=== PATIENT | female | born 1960 | race Caucasian/White ===

== ENCOUNTER 2018-11-06 05:23 | Inpatient (IN) | payer BC ==
[2018-11-06] MEDS ORDERED: Celecoxib 200 MG Cap PO ONE (05:39)
[2018-11-06] MEDS ORDERED: Acetaminophen 500 MG Tab PO ONE (05:39)
[2018-11-06] MEDS ORDERED: Gabapentin 300 MG Cap PO ONE (05:39)
[2018-11-06] MEDS ORDERED: Scopolamine 1.5 MG Transdermal Patch TOP ONE (05:42)
[2018-11-06] MEDS ORDERED: Dextrose 5%-Lactated Ringers 1,000 ML IV SCH ×2 (05:45→11:00)
[2018-11-06] MEDS ORDERED: cefOXitin 2 GM Vial ONE (06:54)
[2018-11-06] MEDS ORDERED: cefOXitin 2 GM in Sodium Chloride 0.9% 100 ML IV ONE (07:00)
[2018-11-06] MEDS ORDERED: Succinylcholine 200 MG/10 ML MDV ONE (07:02)
[2018-11-06] MEDS ORDERED: Dexamethasone 4 MG/ML SDV ONE (07:02)
[2018-11-06] MEDS ORDERED: Propofol 200 MG/20 ML SDV ONE (07:02)
[2018-11-06] MEDS ORDERED: Neostigmine Methylsulfate 1 MG/ML 5 ML Syringe ONE (07:02)
[2018-11-06] MEDS ORDERED: Rocuronium 50 MG/5 ML Vial ONE ×2 (07:02→08:12)
[2018-11-06] MEDS ORDERED: Ondansetron 4 MG/2 ML SDV ONE (07:02)
[2018-11-06] MEDS ORDERED: Glycopyrrolate 0.2 MG/ML 5 ML MDV ONE (07:02)
[2018-11-06] MEDS ORDERED: cefOXitin 2 GM in Sodium Chloride 0.9% 50 ML IV ONE ×2 (07:15→07:30)
[2018-11-06] MEDS ORDERED: Ketamine 500 MG/5 ML MDV IV SCH (07:30)
[2018-11-06] MEDS ORDERED: Ketamine 50 MG in Sodium Chloride 0.9% 49.5 ML IV SCH (07:30)
[2018-11-06] MEDS ORDERED: Lidocaine 2% 100 MG/5 ML Syringe IVPUSH SCH (07:30)
[2018-11-06] MEDS ORDERED: Labetalol 20 MG/4 ML Syringe ONE (07:48)
[2018-11-06] MEDS ORDERED: Sugammadex Sodium 200 MG/2 ML VIAL ONE (09:14)
[2018-11-06] MEDS ORDERED: hydrALAZINE 20 MG/ML SDV IVPUSH ONE ×2 (09:50→10:01)
[2018-11-06] MEDS ORDERED: Insulin Lispro 100 Unit/ML 3 ML KwikPen SUBCUT ONE (10:15)
[2018-11-06] MEDS ORDERED: hydrOXYzine HCl 100 MG/2 ML SDV IM PRN (11:22)
[2018-11-06] MEDS ORDERED: diphenhydrAMINE 50 MG/ML SDV IVPUSH PRN (11:22)
[2018-11-06] MEDS ORDERED: HYDROmorphone 1 MG/ML Syringe IV PRN (11:22)
[2018-11-06] MEDS ORDERED: Metoclopramide 10 MG/2 ML SDV IVPUSH PRN (11:22)
[2018-11-06] MEDS ORDERED: Ondansetron 4 MG/2 ML SDV IVPUSH PRN (11:22)
[2018-11-06] MEDS ORDERED: HYDROmorphone 0.5 MG/0.5 ML Syringe IVPUSH PRN (11:22)
[2018-11-06] MEDS ORDERED: Labetalol 20 MG/4 ML Syringe IVPUSH PRN (11:22)
[2018-11-06] MEDS: Lidocaine 0.4%/D5W 2 GM/500 ML BAG IV SCH (11:48)
[2018-11-06] MEDS: cefOXitin 2 GM in Sodium Chloride 0.9% 50 ML IV SCH ×2 (12:02→17:52)
[2018-11-06] MEDS: Propranolol 40 MG Tab PO SCH ×2 (14:03→20:30)
[2018-11-06] MEDS: Gabapentin 250 MG/5 ML Solution ML 470 ML Bottle PO SCH ×2 (14:03→20:26)
[2018-11-06] MEDS: Acetaminophen 325 MG Tab PO SCH ×2 (14:03→20:27)
[2018-11-06] MEDS ORDERED: Pantoprazole 40 MG Vial IVPUSH SCH (16:00)
[2018-11-06] MEDS ORDERED: MVI, Adult with Vitamin K 10 ML, Thiamine 200 MG, Chromium/Copper/Mang/Selen/Zn 1 ML in... IV SCH ×4 (16:00)
[2018-11-06] MEDS: Heparin Sodium 5,000 Units/ML Vial SUBCUT SCH (17:12)
[2018-11-06] MEDS: Insulin Lispro 100 Unit/ML 3 ML KwikPen SUBCUT PRN ×2 (17:13→22:10)
[2018-11-06] MEDS: Lactated Ringers 1,000 ML IV SCH (22:16)
[2018-11-07] MEDS: cefOXitin 2 GM in Sodium Chloride 0.9% 50 ML IV SCH ×2 (00:36→05:44)
[2018-11-07] MEDS ORDERED: Iopamidol 612 MG/ML 100 ML Bottle IV SCH (02:45)
[2018-11-07] MEDS: Acetaminophen 325 MG Tab PO SCH ×4 (03:09→21:17)
[2018-11-07] MEDS: Heparin Sodium 5,000 Units/ML Vial SUBCUT SCH ×2 (03:09→15:23)
--- NOTE | 2018-11-07 04:09 | CRLCR ---
Indication: Eval rate Jose-en-Y Technique: KUB 2 view Comparison: None Findings/Impression: : There is oral contrast within the stomach and small bowel. No obstruction or extravasation. A KAEL drain projects in the left upper quadrant. Nonspecific bowel gas pattern. Dictated by Mignon Bearden MD @ Nov 07 2018 4:07AM Signed by Dr. Mignon Bearden @ Nov 07 2018 4:07AM
[2018-11-07] MEDS: Insulin Lispro 100 Unit/ML 3 ML KwikPen SUBCUT PRN (04:59)
[2018-11-07] MEDS: Lactated Ringers 1,000 ML IV SCH ×2 (06:15→23:17)
[2018-11-07] MEDS: Propranolol 40 MG Tab PO SCH ×2 (08:32→21:18)
[2018-11-07] MEDS: DULoxetine 30 MG Cap PO SCH ×2 (08:32→21:18)
[2018-11-07] MEDS: Celecoxib 200 MG Cap PO SCH (08:32)
[2018-11-07] MEDS: Gabapentin 250 MG/5 ML Solution ML 470 ML Bottle PO SCH ×3 (08:33→21:21)
[2018-11-07] MEDS: Lidocaine 0.4%/D5W 2 GM/500 ML BAG IV SCH (10:12)
[2018-11-07] MEDS: SCOPOLAMINE PATCH CHECK TOP SCH (10:12)
--- NOTE | 2018-11-07 13:07 | PN ---
DATE OF SERVICE: 11/07/2018 The patient is postop day #1 from laparoscopic Jose-en-Y gastric bypass. Overall, she is doing well. Her blood sugar is a little bit high, and I think this will come down today with coverage and switching over to plain LR step-2 diet today. I am going to restart her pertinent oral medications, and she may be ready for discharge home tomorrow. Rogelio Crisostomo MD /[id number]
[2018-11-07] MEDS: ANASTROZOLE 1 MG PO SCH (15:20)
[2018-11-07] MEDS ORDERED: MVI, Adult with Vitamin K 10 ML, Thiamine 200 MG, Chromium/Copper/Mang/Selen/Zn 1 ML in... IV SCH ×4 (16:00)
[2018-11-07] MEDS ORDERED: Pantoprazole 40 MG Delayed-Release Granules 1 Packet PO SCH (16:30)
[2018-11-07] MEDS ORDERED: Simvastatin 20 MG Tab PO SCH (21:00)
[2018-11-07] MEDS ORDERED: QUEtiapine 100 MG Tab PO SCH (21:00)
[2018-11-08] MEDS: Acetaminophen 325 MG Tab PO SCH ×3 (03:19→11:22)
[2018-11-08] MEDS: Heparin Sodium 5,000 Units/ML Vial SUBCUT SCH (03:19)
[2018-11-08] MEDS: Celecoxib 200 MG Cap PO SCH (07:33)
[2018-11-08] MEDS ORDERED: Cyanocobalamin (Vitamin B12) 1,000 MCG/ML SDV IM ONE (09:00)
[2018-11-08] MEDS: Propranolol 40 MG Tab PO SCH (09:47)
[2018-11-08] MEDS: DULoxetine 30 MG Cap PO SCH (09:47)
[2018-11-08] MEDS: SCOPOLAMINE PATCH CHECK TOP SCH (09:48)
[2018-11-08] MEDS: ANASTROZOLE 1 MG PO SCH (09:49)
[2018-11-08] MEDS: Gabapentin 250 MG/5 ML Solution ML 470 ML Bottle PO SCH ×2 (09:55→09:57)
--- NOTE | 2018-11-08 13:52 | OR ---
DATE OF PROCEDURE: 11/06/2018 SURGEON: Rogelio Crisostomo MD PREOPERATIVE DIAGNOSIS: Morbid obesity. POSTOPERATIVE DIAGNOSES: 1. Morbid obesity. 2. Marked hepatomegaly. 3. Paraesophageal diaphragmatic hernia. 4. Mediastinal lipoma. 5. Nodular lesion on surface of the stomach. OPERATIVE PROCEDURES: 1. Laparoscopic Jose-en-Y gastric bypass with long-limb gastroenterostomy (21942). 2. Tereso-Cut needle liver biopsy (33069). 3. Repair of paraesophageal diaphragmatic hernia (34901). 4. Excision of mediastinal lipoma (14899). 5. Excision of nodular lesion on surface of stomach (75409). ANESTHESIA: General. BROADBAND TECHNICIAN: Barbara Isaacs PA-C. INDICATIONS FOR PROCEDURE: This is a 58-year-old presenting with longstanding morbid obesity and increasingly significant comorbidities. After preoperative evaluation and discussion, she wished to proceed with a gastric bypass procedure. Potential risks including bleeding, infection, leaks from various GI tract closures, problems with bowel obstruction over time, as well as the possibility of cardiopulmonary, septic, or hemorrhagic complications leading to were all discussed, and the patient wishes to proceed. DETAILS OF PROCEDURE: The patient was taken to the operating room and after general endotracheal anesthesia was induced, she was placed in a lithotomy position, and the abdomen was prepped and draped. At 15 cm inferior and 5 cm left of the xiphoid process, a transverse incision was made. The peritoneal cavity was entered under direct vision with an Optiview trocar and inflated to 15 mmHg pressure with CO2. Laparoscope was reinserted and no underlying trocar insertion site injuries were seen. Following this, bilateral transversus abdominis plane blocks were placed, and 5 additional trocars were placed across the upper and midabdomen. The liver was noted to be markedly fatty infiltrated, and Tereso-Cut needle biopsy was obtained from the left lobe of the liver. The omentum was then divided in the midline up to the level of the transverse colon. This allowed identification of small bowel at the ligament of Treitz. Small bowel was then traced out 200 cm distal to that point, where it was divided transversely with the HUGO stapler. The small bowel was then traced out an additional 150 cm, where the [id number] enteroenterostomy was accomplished with internal firing of the Endo-HUGO 60 mm stapler. Common opening was then closed transversely with the same stapler and the angles of anastomosis and mesenteric defect approximated with some 0 Ethibond stitch, along with fibrin sealant. The divided end of the Jose limb was then from the mesentery for a few centimeters, which allowed an antecolic position of the Jose limb up to the level of the gastroesophageal junction without tension. The liver was then retracted anteriorly. The patient was noted to have some clear frond- like nodularity on the surface of the stomach. This was excised and sent for histologic evaluation. The entire amount of this removed was in the range of 2 mm. This was obtained by simply grasping this with the non-traumatic clamps and pulling this off the surface of the stomach. Upon evaluation of the esophagogastric junction, the patient was noted to have a moderate- sized paraesophageal diaphragmatic hernia with prolapse of some perigastric fat and fundus in the plane anterior and slightly to the left of the course of the esophagus. This was reduced and the peritoneum overlying this incised and reflected downward. During the course of dissection, mediastinal lipoma was encountered, and this was excised and sent for histologic evaluation, with the lipoma excision likely to facilitate a more adequate repair of the diaphragmatic hernia, which was then accomplished with some 0 Ethibond sutures reinforced with PTFE pledgets. At this point, the gastrointestinal balloon catheter was inflated to 15 mL and pulled up snuggly against the EG junction. Gastric wall over the apex of balloon was then marked with electrocautery and balloon catheter deflated and pulled up in esophagus. The lesser omental tissue adjacent to the gastric cardia was incised, allowing dissection behind the stomach at that level. Pouch formation was initiated with a transversely-oriented HUGO stapler firing at the level of the cauterized william at the gastric cardia and then completed with additional firings of HUGO carlos up to and through the angle of His. Upon completion of the pouch, both staple lines were noted to be intact. The anvil of a 25-mm EEA stapler was then attached to [place] sump type tube. The latter was brought down through the mouth and taken out a small opening in the gastric pouch, allowing the anvil likewise to be placed into the gastric pouch. The divided-end of the Jose limb was then opened and the main body of EEA stapler passed several centimeters into the lumen of small bowel, brought up the anvil and united with it, thus creating the gastrojejunostomy. Upon removal of the stapler, double donuts of mucosa were noted within it, and the small bowel was closed off with a vascular staple line. Gastrojejunostomy was reinforced with some 3-0 Vicryl seromuscular stitch, along with fibrin sealant. Leak test was accomplished with injection of 120 mL of air in the gastric pouch while submerged within cefoxitin-containing saline solution. No leaks were identified. A single Sahil-Beck drain was placed through the left lateral trocar site and positioned adjacent to the gastrojejunostomy, from there up to the area of the splenic fossa. The trocars were then sequentially removed. The peritoneal cavity was deflated. Incisions were closed with 4-0 Vicryl skin stitch and drains affixed with some 4-0 Vicryl stitch as well. The patient was taken to the recovery room in a satisfactory condition. Physician assistant buyer, Barbara Isaacs, played an essential role in assisting in this case, helping to position the patient, retract structures as needed, as well as suturing and cutting sutures when indicated. Her presence improved patient safety and decreased the operative time. Rogelio Crisostomo MD /[id number]
--- NOTE | 2018-11-09 02:19 | DISCH ---
ADMISSION DIAGNOSES: 1. Morbid obesity, BMI 44. 2. Diabetes type 2, hemoglobin A1c seven. 3. Depression. 4. Sleep apnea with use of CPAP. 5. Gastroesophageal reflux disease. 6. Migraine headaches. 7. Hyperlipidemia. 8. Midline low back pain with right-sided sciatica. 9. Anxiety. 10.Malignant neoplasm of lower inner quadrant of right breast, estrogen receptor positive. 11.History of alcohol abuse. 12.Sensorineural hearing loss bilaterally. 13.Hypertension. DISCHARGE DIAGNOSES: 1. Laparoscopic Jose-en-Y gastric bypass surgery, liver biopsy. 2. Repair of diaphragmatic hernia. 3. Excision of mediastinal lipoma and excision of nodule on surface of stomach. 4. Morbid obesity. 5. Hepatomegaly. 6. Diaphragmatic hernia. 7. Mediastinal lipoma and nodule on surface of stomach. Date of surgery 11/06/2018. Surgeon, Rogelio Crisostomo MD. HISTORY: Supriya Hoffman is a 58-year-old female with longstanding history of morbid obesity and increasing comorbidities. On admission, her hemoglobin A1c was seven indicating diabetes type 2. After preoperative evaluation and discussion of possible risks and possible complications, she wished to proceed with surgical procedure. HOSPITAL COURSE: Supriya had her surgery on 11/06/2018. She had no operative complications. On postoperative day #1, she was started on a step 2 gastric bypass diet with no cereal. Vital signs were stable. Activity was good. She received dietary instruction. On postoperative day #2, she was able to be discharged to home. PHYSICAL EXAMINATION: GENERAL: Supriya Hoffman is a pleasant, 58-year-old female. VITAL SIGNS: Height is 5 feet 2 inches, weight is 243 pounds. TPR is 96.5, 59, 16, blood pressure is 152/70. HEENT: Negative. NECK: Supple. HEART: Regular rate and rhythm. LUNGS: Clear. ABDOMEN: Sutured trocar sites intact. Abdominal binder is on. EXTREMITIES: Without peripheral edema. DISPOSITION: Discharged to home. CONDITION: Stable and improving. FOLLOWUP APPOINTMENT: Barbara Isaacs PA-C, on 11/15/2018 at 10 a.m. MEDICATIONS: New prescriptions: 1. Tylenol 650 mg oral q.6 hours p.r.n. pain. 2. Celebrex 200 mg oral daily #14. 3. Zofran ODT 4 mg q.6 hours p.r.n. nausea #30. She is to continue: 1. Cymbalta 30 mg oral b.i.d. 2. Arimidex 1 mg oral daily. 3. Lasix 20 mg oral daily. 4. Nystatin 15 g topical four times a day. 5. Omeprazole 20 mg oral daily. 6. Inderal 40 mg oral twice a day. 7. Seroquel 100 mg oral at bedtime. 8. Zocor 80 mg oral at bedtime. 9. Vistaril 25 mg oral every 8 hours p.r.n. anxiety. Discontinue takin. Vitamin D3. 2. Ferrous fumarate. 3. Vitron-C. 4. Magnesium. 5. Multivitamin daily until first postoperative appointment. DIET: Step 2 gastric bypass diet for 2 weeks until Tuesday11/21/2018. Drink 8 to 10 glasses of water a day. ACTIVITY: No lifting greater than 10 pounds for 2 weeks. Other activity: Walk at least 6 times daily inside your home. Driving: Do not drive for one week. Shower/bathing: May shower. DISCHARGE INSTRUCTIONS: Notify provider if any fever, increased pain, swelling, redness, nausea, or vomiting. Keep site clean and dry. Wear abdominal binder for 2 weeks and then as tolerated. Special instruction: Use incentive spirometer 10 times every hour while awake for 1 week.
== END 2018-11-08 11:30 | disposition home or self-care (01) | DRG 403 ==
LOC: JP.SDS 05:23 → JP.SDSSCHI 06:00 → JP.MS 09:00 → EDSTATUS 09:30 → UNDOADMIN 09:30 → JP.SDSSCHI 09:30
PROVIDERS: ADMIT Surgery; ATTEND Surgery
PROC: 0D164ZA Bypass Stomach to Jejunum, Percutaneous Endoscopic Approach (ICD-10-PCS; principal; 2018-11-06)
PROC: 0FB24ZX Excision of Left Lobe Liver, Percutaneous Endoscopic Approach, Diagnostic (ICD-10-PCS; 2018-11-06)
PROC: 0DB64ZX Excision of Stomach, Percutaneous Endoscopic Approach, Diagnostic (ICD-10-PCS; 2018-11-06)
PROC: 0BQT4ZZ Repair Diaphragm, Percutaneous Endoscopic Approach (ICD-10-PCS; 2018-11-06)
PROC: 0WBC4ZX Excision of Mediastinum, Percutaneous Endoscopic Approach, Diagnostic (ICD-10-PCS; 2018-11-06)
DX: E66.01 Morbid (severe) obesity due to excess calories (principal); Z68.41 Body mass index [BMI] 40.0-44.9, adult; R16.0 Hepatomegaly, not elsewhere classified; K44.9 Diaphragmatic hernia without obstruction or gangrene; D17.4 Benign lipomatous neoplasm of intrathoracic organs; K31.9 Disease of stomach and duodenum, unspecified; K76.0 Fatty (change of) liver, not elsewhere classified; I10 Essential (primary) hypertension; Z85.3 Personal history of malignant neoplasm of breast; G47.33 Obstructive sleep apnea (adult) (pediatric); Z99.89 Dependence on other enabling machines and devices; E78.5 Hyperlipidemia, unspecified; F32.9 Major depressive disorder, single episode, unspecified; G43.909 Migraine, unspecified, not intractable, without status migrainosus; F10.11 Alcohol abuse, in remission; F41.9 Anxiety disorder, unspecified; E11.9 Type 2 diabetes mellitus without complications; H90.5 Unspecified sensorineural hearing loss; K21.9 Gastro-esophageal reflux disease without esophagitis; M54.9 Dorsalgia, unspecified; Z87.891 Personal history of nicotine dependence
CPT/HCPCS: 36415; 74240; 82962; 83036; 86850; 86900; 86901; A9270-GY; C9113; C9399; J0171; J0330; J0360; J0694; J1100; J1170; J1644; J1815; J1815-GY; J2001; J2405; J2704; J2710; J2795; J3010; J3410; J3411; J3420; J3490; J7030; J7042; J7050; J7120; Q9967

== ENCOUNTER 2020-07-07 05:48 | Day surgery (SDC) | payer BC, OTHER ==
[2020-07-07] MEDS ORDERED: Lactated Ringers 1,000 ML IV SCH (06:30)
[2020-07-07] MEDS ORDERED: Povidone-Iodine 10% Soln 118.25 ML Bottle ONE (06:46)
[2020-07-07] MEDS ORDERED: Nozin Nasal Sanitizer NASBOTH SCH (07:00)
[2020-07-07] MEDS ORDERED: ceFAZolin 2 GM in Premix Bag 1 BAG IV ONE (07:30)
[2020-07-07] MEDS ORDERED: ceFAZolin 1 GM in Premix Bag 1 BAG IV ONE (07:30)
[2020-07-07] MEDS ORDERED: Tranexamic Acid 680 MG in Sodium Chloride 0.9% 50 ML IV ONE (07:30)
[2020-07-07] MEDS ORDERED: Acetaminophen/HYDROcodone 325-5 MG Tab PO PRN (08:59)
[2020-07-07] MEDS ORDERED: Morphine 2 MG/ML SYRINGE IV PRN (08:59)
[2020-07-07] MEDS ORDERED: Acetaminophen 325 MG Tab PO PRN (08:59)
[2020-07-07] MEDS ORDERED: Ondansetron 4 MG/2 ML SDV IVPUSH PRN (08:59)
[2020-07-07] MEDS ORDERED: Magnesium Hydroxide 400 MG/5 ML Susp 30 ML Cup PO PRN (08:59)
[2020-07-07] MEDS ORDERED: Sodium Chloride 0.9% 1,000 ML IV SCH (09:00)
[2020-07-07] MEDS ORDERED: Non-Formulary Medication 1 Each (Hydroxyzine Pamoate [Vistaril] 25 MG) PO PRN (09:07)
--- NOTE | 2020-07-07 10:00 | CR ---
Pelvis 1V or 2V CLINICAL HISTORY: Arthroplasty FINDINGS: Patient has undergone recent left hip total arthroplasty. Components appear well seated. There is a small amount of intra-articular air IMPRESSION: Status post left total left hip arthroplasty
[2020-07-07] MEDS ORDERED: hydrOXYzine HCl 25 MG Tab PO PRN (10:20)
[2020-07-07] MEDS ORDERED: Tranexamic Acid 680 MG in Sodium Chloride 0.9% 50 ML IV PRN (10:30)
[2020-07-07] MEDS ORDERED: fentaNYL 100 MCG/2 ML SDV ONE (11:17)
[2020-07-07] MEDS ORDERED: Propofol 200 MG/20 ML SDV ONE ×2 (11:17→11:18)
[2020-07-07] MEDS ORDERED: Midazolam 1 MG/ML 2 ML SDV ONE (11:17)
[2020-07-07] MEDS: Ketorolac 30 MG/ML SDV IVPUSH SCH ×2 (11:45→18:00)
[2020-07-07] MEDS: Docusate Sodium 100 MG Cap PO SCH (11:47)
[2020-07-07] MEDS: Acetaminophen/oxyCODONE 325-5 MG Tab PO PRN ×3 (13:51→21:06)
[2020-07-07] MEDS: ceFAZolin 1 GM in Premix Bag 1 BAG IV SCH ×2 (14:38→22:43)
[2020-07-07] MEDS: Polyethylene Glycol 3350 Powder 17 GM Packet PO SCH (14:38)
[2020-07-07] MEDS ORDERED: Morphine 2 MG/ML SYRINGE IVPUSH ONE (17:14)
[2020-07-07] MEDS ORDERED: QUEtiapine 100 MG Tab PO SCH (21:00)
[2020-07-07] MEDS: Nozin Nasal Sanitizer NASBOTH SCH (21:04)
[2020-07-08] MEDS: Acetaminophen/oxyCODONE 325-5 MG Tab PO PRN ×4 (01:36→13:52)
[2020-07-08] MEDS: Ketorolac 30 MG/ML SDV IVPUSH SCH ×2 (03:29→11:04)
[2020-07-08] MEDS: ceFAZolin 1 GM in Premix Bag 1 BAG IV SCH (06:35)
[2020-07-08] MEDS ORDERED: Pantoprazole 40 MG Tab.CR PO SCH (07:30)
[2020-07-08] MEDS: Nozin Nasal Sanitizer NASBOTH SCH (08:49)
[2020-07-08] MEDS: Docusate Sodium 100 MG Cap PO SCH (08:49)
[2020-07-08] MEDS: Polyethylene Glycol 3350 Powder 17 GM Packet PO SCH (08:49)
[2020-07-08] MEDS ORDERED: Non-Formulary Medication 1 Each (Omeprazole [Omeprazole] 20 MG) PO SCH (09:00)
[2020-07-08] MEDS ORDERED: Furosemide 20 MG Tab PO SCH (09:00)
[2020-07-08] MEDS ORDERED: Magnesium Oxide 400 MG Tab PO SCH (09:00)
[2020-07-08] MEDS ORDERED: MAGNESIUM OXIDE 800 MG PO SCH (09:00)
[2020-07-08] MEDS ORDERED: Polyethylene Glycol 3350 Powder 17 GM Packet PO SCH (09:00)
--- NOTE | 2020-07-08 15:11 | PCM.DCSUM1 ---
Discharge Summary - Hospital Course Brief History: Mojgan 60 y/o female with severe left hip osteoarthritis; she failed conservative management and elected surgical management with a left total hip arthroplasty. Underwent left total hip arthroplasty on 07/07/20. Surgery went well with no complications. Diagnosis: Stroke: No Modified Nalini Scale: No Symptoms at All Modified Nalini Scale Score: 0 - Discharge Data Discharge Date: 07/08/20 Discharge Disposition: Home, Self-Care 01 Condition: Good - Referral to Home Health Date of Face to Face Encounter: 07/08/20 Reason for Homebound Status: Able to safely ambulate with FWW and perform ADLs. Good support system at home. Primary Care Physician: DEMETRIUS Goyal - Patient Summary/Data Operative Procedure(s) Performed: left total hip arthroplasty Consults: Consultations 07/07/20 08:59 Consult to Case Management/Hockey Scout [CONS] Routine Comment: Physician Instructions: Discharge placement post hip surgery Service(s) to be Consulted: Case Management PT Evaluation and Treatment [CONS] Routine Please Evaluate and Treat. PT Reason for Consult: Ambulation Discharge Disposition: Home w Home Health Special Instructions: posterior hip precautions, WBAT This query below is only for informational purposes and is not editable. PT Evaluation and Treatment [CONS] Routine Please Evaluate and Treat. PT Reason for Consult: Post op Ortho Surgery Hip Pending Discharge: Yes, 2- -3 days Special Instructions: Schedule first outpatient P.T. appointment 3 - 5 days post discharge This query below is only for informational purposes and is not editable. 07/07/20 09:04 OT Evaluation and Treatment [CONS] Routine Please Evaluate and Treat. OT Reason for Consult: ADL's Special Instructions: Status post Hip Surgery This query below is only for informational purposes and is not editable. Hospital Course: Patient is a mojgan 60 y/o female, s/p L total hip arthroplasty, POD#1. Surgery went well with no complications. Patient reports she was doing well until the block wore off yesterday; reports her pain was much higher than she was expecting yesterday evening. Patient utilized prn pain meds: 1 mg morphine yesterday evening and two 5-325 Percocets this morning. Has also been receiving scheduled 30 mg IV toradol q8 hrs. Reports her pain feels much better managed throughout today. Patient ambulated 20 feet with FWW yesterday evening after surgery. Worked with physical therapy twice today and showed improvement in each session; was able to ambulate 75 ft with FWW and perform exercises for strengthening of L lower extremity. Patient demonstrated ability to safely transfer in and out of bed to chair. Posterior hip precautions reviewed by physical therapy. Patient also participated in occupational therapy today, was doing well with ADLs using assistive equipment and minimal x1 assist. Has good support system at home with boyfriend, who use to be a [employer]ERING CONTRACTOR. Patient has been tolerating regular diet well with no nausea/emesis. Forte was discontinued and IV was saline locked this morning. Dressing change performed this afternoon by orthopedic provider. Exam: Left hip incision intact, no surrounding erythema, warmth to touch, drainage, nor ecchymosis of L hip. No pedal edema noted of L foot. Sensation intact on L lower extremity. Tibialis posterior pulse appreciated 2+. - Patient Instructions Diet: Usual Diet as Tolerated Activity: Apply Ice, Elevate Extremity, Full Weight Bearing Driving: Do Not Drive Showering/Bathing: Shower in AM Wound/Incision Care: Keep Operative Site/Wound Site Clean and Dry Notify Provider of: Fever, Increased Pain, Swelling and Redness, Drainage - Discharge Plan *PRESCRIPTION DRUG MONITORING PROGRAM REVIEWED*: Not Applicable *COPY OF PRESCRIPTION DRUG MONITORING REPORT IN PATIENT MOY: Not Applicable Home Medications: Home Meds Celecoxib [CeleBREX] 200 mg PO DAILY 11/03/18 [History] Furosemide [Lasix] 20 mg PO DAILY 11/03/18 [History] Omeprazole 20 mg PO DAILY 11/03/18 [History] hydrOXYzine pamoate [Vistaril] 25 mg PO Q8H PRN 11/03/18 [History] Calcium Citrate/Vitamin D3 [Calcium Citrate - Vit D Caplet] 2 each PO DAILY 06/16/20 [History] Cyanocobalamin (Vitamin B12) [Vitamin B12] 1,000 mg SL DAILY 06/16/20 [History] Ferrous Fumarate/Vitamin C [Vitron-C] 1 tab PO DAILY 06/16/20 [History] Magnesium Oxide [Magnesium] 800 mg PO DAILY 06/16/20 [History] Multivitamin [Multiple Vitamins] 2 tab PO DAILY 06/16/20 [History] QUEtiapine [SEROquel] 100 mg PO BEDTIME 06/16/20 [History] polyethylene glycoL 3350 [MiraLAX] 17 gm PO DAILY 06/16/20 [History] Acetaminophen [Tylenol] 650 mg PO Q6H PRN 06/17/20 [History] traMADol [Ultram] 50 mg PO Q6H PRN #28 tab 06/26/20 [Rx] Oxygen Therapy Mode: Room Air Patient Handouts: Incision Care, Adult, [id number] Referrals: Terrance Okeefe MD [Physician] - 07/22/20 10:30 am (Please arrive 15 minutes early to register for your appointment.) - Discharge Summary/Plan Comment DC Time >30 min.: No Discharge Summary/Plan Comment: * Discharge to home this afternoon; patient lives with boyfriend who used to be a P[employer]ING CONTRACTOR, he feels confident helping with ADLs * Patient to participate in outpatient physical therapy * Paper script given for 1 week supply of Percocet for pain management * Instructed patient to take 1 aspirin BID until 2 week follow up apt for DVT/VTE prophylaxis * Instructed patient to continue with Nozin nasal spray * Dressing change performed by orthopedic provider; instructions given to patient regarding wound care- is okay to shower, but do not go into jacuzzi or tub until seen at 2 week follow up apt. * Patient to follow up with orthopedics in 2 weeks. Encouraged to call if any concerns or questions arise prior to scheduled apt * Patient agreeable and expressed understanding of this plan via teach back - General Info Date of Service: 07/08/20 Admission Dx/Problem (Free Text: left hip osteoarthritis Functional Status: Reports: Pain Controlled, Tolerating Diet, Ambulating - Review of Systems General: Reports: No Symptoms HEENT: Reports: No Symptoms Pulmonary: Reports: No Symptoms Cardiovascular: Reports: No Symptoms Gastrointestinal: Reports: No Symptoms Genitourinary: Reports: No Symptoms Musculoskeletal: Reports: Leg Pain (L hip ), Joint Pain (L hip ) Skin: Reports: No Symptoms Neurological: Reports: No Symptoms Psychiatric: Reports: No Symptoms - Patient Data Vitals - Most Recent: Last Vital Signs Temp 99 F 07/08/20 14:24 Pulse 73 07/08/20 14:24 Resp 16 07/08/20 14:24 BP 99/64 07/08/20 14:24 Pulse Ox 97 07/08/20 14:24 Weight - Most Recent: 152 lb 3.2 oz I&O - Last 24 hours: Intake & Output 07/08/20 07/08/20 07/08/20 06:59 14:59 22:59 Intake Total 850 1130 Output Total 650 225 Balance 200 905 Lab Results - Last 24 hrs: Laboratory Results - last 24 hr 07/08/20 Range/Units 05:23 WBC 6.9 (4.5-11.0) K/uL RBC 3.57 (3.30-5.50) M/uL Hgb 10.9 L (12.0-15.0) g/dL Hct 34.5 L (36.0-48.0) % MCV 97 (80-98) fL MCH 31 (27-31) pg MCHC 32 (32-36) % Plt Count 238 (150-400) K/uL Med Orders - Current: Current Medications Acetaminophen (Tylenol) 650 mg PO Q4H PRN PRN Reason: Pain/Fever Hydrocodone Bitart/Acetaminophen (Longs 325-5 Mg) 2 tab PO Q4H PRN PRN Reason: Pain (mild 1-3) Bandage/Support Products ( Nasal Health Program Analyst) 1 applic NASBOTH BID [facility] Stop: 07/14/20 21:01 Last Admin: 07/08/20 08:49 Dose: 1 swab Documented by: Docusate Sodium (Colace) 100 mg PO DAILY [facility] Last Admin: 07/08/20 08:49 Dose: Not Given Documented by: Furosemide (Lasix) 20 mg PO DAILY [facility] Last Admin: 07/08/20 08:50 Dose: 20 mg Documented by: Hydroxyzine HCl (Atarax) 25 mg PO Q8H PRN PRN Reason: Anxiety Sodium Chloride (Normal Saline) 1,000 mls @ 125 mls/hr IV ASDIRECTED [facility] Last Admin: 07/07/20 11:50 Dose: 125 mls/hr Documented by: Ketorolac Tromethamine (Toradol) 30 mg IVPUSH Q8H [facility] Stop: 07/12/20 11:01 Last Admin: 07/08/20 11:04 Dose: 30 mg Documented by: Magnesium Hydroxide (Milk Of Magnesia) 30 ml PO Q6H PRN PRN Reason: Stool Softener Magnesium Oxide (Magnesium Oxide) 800 mg PO DAILY [facility] Last Admin: 07/08/20 08:49 Dose: 800 mg Documented by: Morphine Sulfate (Morphine) 1 mg IV Q1H PRN PRN Reason: Breakthrough Pain Last Admin: 07/07/20 16:06 Dose: 1 mg Documented by: Ondansetron HCl (Zofran) 4 mg IVPUSH Q6H PRN PRN Reason: Nausea/Vomiting Oxycodone/Acetaminophen (Percocet 325-5 Mg) 0 tab PO Q4H PRN PRN Reason: Pain (severe 7-10) Last Admin: 07/08/20 13:52 Dose: 2 tab Documented by: Pantoprazole Sodium (Protonix) 40 mg PO ACBREAKFAST [facility] Last Admin: 07/08/20 07:25 Dose: 40 mg Documented by: Polyethylene Glycol (Miralax) 17 gm PO DAILY [facility] Last Admin: 07/08/20 08:49 Dose: 17 gm Documented by: Quetiapine Fumarate (Seroquel) 100 mg PO BEDTIME [facility] Last Admin: 07/07/20 21:06 Dose: 100 mg Documented by: Discontinued Medications Bandage/Support Products ( Nasal Health Program Analyst) 1 applic NASBOTH BID [facility] Last Admin: 07/07/20 06:47 Dose: 1 applic Documented by: Fentanyl (Sublimaze) Confirm Administered Dose 100 mcg .ROUTE .STK-MED ONE Stop: 07/07/20 11:18 Lactated Ringer's (Ringers, Lactated) 1,000 mls @ 75 mls/hr IV ASDIRECTED [facility] Last Admin: 07/07/20 06:50 Dose: 75 mls/hr Documented by: Cefazolin Sodium/Dextrose 2 gm (/ Premix) 50 mls @ 100 mls/hr IV ONETIME ONE Stop: 07/07/20 07:59 Last Admin: 07/07/20 07:36 Dose: 100 mls/hr Documented by: Tranexamic Acid 680 mg/ Sodium (Chloride) 56.8 mls @ 227.2 mls/hr IV ONETIME ONE Stop: 07/07/20 07:44 Last Admin: 07/07/20 07:35 Dose: 227.2 mls/hr Documented by: Tranexamic Acid 680 mg/ Sodium (Chloride) 56.8 mls @ 227.2 mls/hr IV ONETIME PRN PRN Reason: 2ND DOSE IF NEEDED Stop: 07/07/20 10:31 Cefazolin Sodium/Dextrose 1 gm (/ Premix) 50 mls @ 100 mls/hr IV Q8H [facility] Stop: 07/08/20 07:29 Last Admin: 07/08/20 06:35 Dose: 100 mls/hr Documented by: Midazolam HCl (Versed 1 Mg/Ml) Confirm Administered Dose 2 mg .ROUTE .STK-MED ONE Stop: 07/07/20 11:18 Morphine Sulfate (Morphine) 2 mg IVPUSH ONETIME ONE Stop: 07/07/20 17:15 Last Admin: 07/07/20 17:18 Dose: 2 mg Documented by: Povidone Iodine (Betadine 10% Soln) Confirm Administered Dose 1 ml .ROUTE .STK- MED ONE Stop: 07/07/20 06:47 Last Admin: 07/07/20 08:16 Dose: 40 ml Documented by: Propofol (Diprivan 20 Ml) Confirm Administered Dose 200 mg .ROUTE .STK-MED ONE Stop: 07/07/20 11:18 Propofol (Diprivan 20 Ml) Confirm Administered Dose 200 mg .ROUTE .STK-MED ONE Stop: 07/07/20 11:19 - Exam General: Reports: Alert, Oriented, Cooperative, No Acute Distress Extremities: Pedal Edema (very mild, left ), Leg Pain (left ), Limited Range of Motion Skin: Reports: Dry, Intact Wound/Incisions: Reports: Healing Well, Dressing Dry and Intact, No Drainage Neurological: Reports: No New Focal Deficit Psy/Mental Status: Reports: Alert, Normal Affect, Normal Mood
--- NOTE | 2020-07-24 21:17 | OR ---
DATE OF PROCEDURE: 07/07/2020 SURGEON: Terrance Okeefe MD PREOPERATIVE DIAGNOSIS: Osteoarthritis, left hip. POSTOPERATIVE DIAGNOSIS: Severe osteoarthritis, left hip. PROCEDURE: Left total hip arthroplasty using Mynor M/L Taper stem size 9 standard, 50 mm Trabecular Metal cup, and a -3.5 length 32-mm ceramic head. FINISH SAW OPERATOR: Jesse Kay ANESTHESIA: Spinal with sedation. INDICATIONS: Supriya is a very pleasant, 60-year-old female with a history of progressive left hip pain. X-ray and examination are consistent with end-stage DJD. She is limited in her activities of daily living. She now presents for a left total hip arthroplasty. Risks, benefits, potential complications of the procedure were discussed. PROCEDURE IN DETAIL: After adequate anesthesia was obtained, patient was placed in a lateral decubitus position and secured with the hip positioner. The left hip and leg were prepped and draped in a sterile fashion. Leg lengths were assessed, and an incision was made over the greater trochanter and carried down through subcutaneous tissues. Hemostasis was obtained with electrocautery. Tensor fascia was divided in line of its fibers and a Charnley retractor was placed. Hip was internally rotated and the short external rotators along with hip capsule were divided. Capsule was divided in a T-fashion and the hip was then dislocated. Significant degenerative changes noted of the femoral head. Oscillating saw was used to make a femoral neck cut. Retractors were then placed about the acetabulum. Soft tissues removed from the central portion of the acetabulum as well as excision of the remaining labrum. The acetabulum was sequentially reamed to a size 50. A 50 cup was impacted into position and no additional fixation was needed. Polyethylene was tapped into position and secured. Attention was return to the femur. An awl was placed down the femoral canal and box osteotome was used to remove the lateral femoral neck cortex. Lateralizing reamer was utilized. The canal was then sequentially broached to a size 9. Trial reductions were made with 0 neck length and -3.5 neck length. The 3.5 neck length provided excellent stability and appeared to reproduce leg length. The trials were removed. Hip was irrigated, and the stem was tapped into position. Trial reductions were again done with 0 and a - 3.5 neck length. A -3.5 was selected again showing excellent stability with full extension as well as flexion, adduction, and internal rotation. Limb lengths were clinically level. Final femoral head was tapped onto the Vela taper, and hip was reduced once again. It was then irrigated with pulse lavage. This was followed by irrigation with a dilute Betadine solution which was left in place for 2-1/2 minutes and irrigated once again with pulse lavage. The capsule was closed with #2 Ethibond. Tensor fascia was closed in a running locking fashion with #2 Ethibond. Skin was closed with 2-0 Vicryl and a running 3-0 Monocryl. Steri-Strips were applied. Sterile dressing was then placed. The patient tolerated procedure well. There were no complications. Taken from the operating room in stable condition. Terrance Okeefe MD /[phone] MTDD
== END 2020-07-08 15:38 | disposition home or self-care (01) ==
LOC: JP.SDS 05:48 → JP.MS 08:59 → JP.SDS 07-08 15:38
PROVIDERS: ATTEND Specialist
DX: M16.12 Unilateral primary osteoarthritis, left hip (principal); I10 Essential (primary) hypertension; Z79.899 Other long term (current) drug therapy
CPT/HCPCS: 36415; 72170; 72170-26; 85027; 86850; 86900; 86901; 97110-GP; 97116-GP; 97161-GP; 97165-GO; 97530-GP; 97535-GO; A9270-GY; C1776; J0690; J1885; J2250; J2270; J2704; J3010; J7030; J7120

== ENCOUNTER 2020-08-18 08:26 | Inpatient (IN) | payer BC, OTHER ==
[~2020-08-18 08:26] MED LIST: Midazolam 1 MG/ML 2 ML SDV ONE; Povidone-Iodine 10% Soln 118.25 ML Bottle ONE; Propofol 200 MG/20 ML SDV ONE; fentaNYL 100 MCG/2 ML SDV ONE
[2020-08-18] MEDS ORDERED: Nozin Nasal Sanitizer NASBOTH SCH (09:00)
[2020-08-18] MEDS ORDERED: Lactated Ringers 1,000 ML IV SCH (09:30)
[2020-08-18] MEDS ORDERED: ceFAZolin 2 GM in Premix Bag 1 BAG IV ONE (10:00)
[2020-08-18] MEDS ORDERED: Lactated Ringers 1,000 ML IV ONE (10:19)
[2020-08-18] MEDS ORDERED: Propofol 200 MG/20 ML SDV ONE ×3 (11:55→13:39)
[2020-08-18] MEDS ORDERED: Lactated Ringers 1,000 ML ONE (13:04)
[2020-08-18] MEDS ORDERED: fentaNYL 100 MCG/2 ML SDV ONE ×2 (13:06→14:02)
[2020-08-18] MEDS ORDERED: Ondansetron 4 MG/2 ML SDV IVPUSH PRN (14:36)
[2020-08-18] MEDS ORDERED: Acetaminophen 325 MG Tab PO PRN (14:36)
[2020-08-18] MEDS ORDERED: Bisacodyl 10 MG Supp RECTAL PRN (14:36)
[2020-08-18] MEDS ORDERED: Acetaminophen/HYDROcodone 325-5 MG Tab PO PRN (14:36)
[2020-08-18] MEDS ORDERED: Magnesium Hydroxide 400 MG/5 ML Susp 30 ML Cup PO PRN (14:36)
[2020-08-18] MEDS ORDERED: Morphine 2 MG/ML SYRINGE IVPUSH ONE (14:50)
--- NOTE | 2020-08-18 15:02 | CR ---
Pelvis 1V or 2V CLINICAL HISTORY: Status post left femoral component revision FINDINGS: Patient is had previous left hip arthroplasty. There is been addition of steel suture in the trochanteric and subtrochanteric region IMPRESSION: Revision of total left hip arthroplasty femoral component
[2020-08-18] MEDS: Acetaminophen/oxyCODONE 325-5 MG Tab PO PRN ×2 (15:37→19:27)
[2020-08-18] MEDS: Ketorolac 30 MG/ML SDV IVPUSH PRN (17:42)
[2020-08-18] MEDS: ceFAZolin 1 GM in Premix Bag 1 BAG IV SCH (17:52)
[2020-08-18] MEDS: Sodium Chloride 0.9% 1,000 ML IV SCH (18:05)
[2020-08-18] MEDS: hydrOXYzine HCl 25 MG Tab PO PRN (18:08)
[2020-08-18] MEDS: Morphine 2 MG/ML SYRINGE IV PRN ×4 (18:17→22:52)
[2020-08-18] MEDS: Nozin Nasal Sanitizer NASBOTH SCH (20:45)
[2020-08-18] MEDS: QUEtiapine 100 MG Tab PO SCH (20:46)
[2020-08-19] MEDS: Acetaminophen/oxyCODONE 325-5 MG Tab PO PRN ×6 (00:20→20:49)
[2020-08-19] MEDS: Sodium Chloride 0.9% 1,000 ML IV SCH (00:21)
[2020-08-19] MEDS: ceFAZolin 1 GM in Premix Bag 1 BAG IV SCH ×2 (01:47→09:05)
[2020-08-19] MEDS: Ketorolac 30 MG/ML SDV IVPUSH PRN ×2 (07:19→19:47)
[2020-08-19] MEDS: hydrOXYzine HCl 25 MG Tab PO PRN ×2 (07:19→16:59)
[2020-08-19] MEDS: Pantoprazole 40 MG Tab.CR PO SCH (07:21)
--- NOTE | 2020-08-19 08:15 | PCM.SURGPN ---
- General Info Date of Service: 08/19/20 Date of Surgery/Procedure: 08/18/20 POD#: 1 Post-Op Diagnosis: left hip femoral component revision due to limb length discrepancy Functional Status: Reports: Tolerating Diet (mild nausea improving) - Review of Systems General: Reports: No Symptoms HEENT: Reports: No Symptoms Pulmonary: Reports: No Symptoms Cardiovascular: Reports: No Symptoms Gastrointestinal: Reports: Nausea Genitourinary: Reports: No Symptoms Musculoskeletal: Reports: Leg Pain (left ), Joint Pain (left hip ) Skin: Reports: No Symptoms Neurological: Reports: No Symptoms Psychiatric: Reports: No Symptoms - Patient Data Vitals - Most Recent: Last Vital Signs Temp 99.4 F 08/19/20 06:50 Pulse 83 08/19/20 06:50 Resp 18 08/19/20 06:50 BP 122/57 L 08/19/20 06:50 Pulse Ox 98 08/19/20 06:50 Weight - Most Recent: 148 lb 1.6 oz I&O - Last 24 Hours: Intake & Output 08/18/20 08/19/20 08/19/20 22:59 06:59 14:59 Intake Total 750 1554 500 Output Total 700 270 225 Balance 50 1284 275 Lab Results Last 24 Hrs: Laboratory Results - last 24 hr 08/18/20 08/18/20 08/18/20 Range/Units 08:48 08:48 08:48 WBC 4.7 (4.5-11.0) K/uL RBC 4.32 (3.30-5.50) M/uL Hgb 13.2 D (12.0-15.0) g/dL Hct 41.9 (36.0-48.0) % MCV 97 (80-98) fL MCH 31 (27-31) pg MCHC 32 (32-36) % Plt Count 261 (150-400) K/uL Sodium 144 (140-148) mmol/L Potassium 4.2 (3.6-5.2) mmol/L Chloride 102 (100-108) mmol/L Carbon Dioxide 34 H (21-32) mmol/L Anion Gap 12.2 (5.0-14.0) mmol/L BUN 13 (7-18) mg/dL Creatinine 0.6 (0.6-1.0) mg/dL Est Cr Clr Drug Dosing 78.86 mL/min Estimated GFR (MDRD) > 60 (>60) Glucose 98 (74-106) mg/dL Calcium 9.9 (8.5-10.1) mg/dL Total Bilirubin 0.3 (0.2-1.0) mg/dL AST 21 (15-37) U/L ALT 28 (12-78) U/L Alkaline Phosphatase 116 (46-116) U/L Total Protein 6.9 (6.4-8.2) g/dL Albumin 3.6 (3.4-5.0) g/dL Globulin 3.3 (2.3-3.5) g/dL Albumin/Globulin Ratio 1.1 L (1.2-2.2) Blood Type O POSITIVE Gel Antibody Screen Negative 08/19/20 Range/Units 06:15 WBC 8.5 (4.5-11.0) K/uL RBC 3.05 L (3.30-5.50) M/uL Hgb 9.4 L D (12.0-15.0) g/dL Hct 29.5 L (36.0-48.0) % MCV 97 (80-98) fL MCH 31 (27-31) pg MCHC 32 (32-36) % Plt Count 259 (150-400) K/uL Sodium (140-148) mmol/L Potassium (3.6-5.2) mmol/L Chloride (100-108) mmol/L Carbon Dioxide (21-32) mmol/L Anion Gap (5.0-14.0) mmol/L BUN (7-18) mg/dL Creatinine (0.6-1.0) mg/dL Est Cr Clr Drug Dosing mL/min Estimated GFR (MDRD) (>60) Glucose (74-106) mg/dL Calcium (8.5-10.1) mg/dL Total Bilirubin (0.2-1.0) mg/dL AST (15-37) U/L ALT (12-78) U/L Alkaline Phosphatase (46-116) U/L Total Protein (6.4-8.2) g/dL Albumin (3.4-5.0) g/dL Globulin (2.3-3.5) g/dL Albumin/Globulin Ratio (1.2-2.2) Blood Type Gel Antibody Screen Med Orders - Current: Current Medications Acetaminophen (Acetaminophen 325 Mg Tab) 650 mg PO Q4H PRN PRN Reason: Pain/Fever Hydrocodone Bitart/Acetaminophen (Acetaminophen/Hydrocodone 325-5 Mg Tab) 1 tab PO Q4H PRN PRN Reason: Pain (mild 1-3) Bandage/Support Products (Nozin Nasal Net Software Architect) 1 applic NASBOTH BID [facility] Stop: 08/25/20 21:01 Last Admin: 08/18/20 20:45 Dose: 1 applic Documented by: Bisacodyl (Bisacodyl 10 Mg Supp) 10 mg RECTAL DAILY PRN PRN Reason: Constipation Docusate Sodium (Docusate Sodium 100 Mg Cap) 100 mg PO DAILY [facility] Enoxaparin Sodium (Enoxaparin 30 Mg/0.3 Ml Syringe) 30 mg SUBCUT DAILY [facility] Furosemide (Furosemide 20 Mg Tab) 20 mg PO DAILY [facility] Hydroxyzine HCl (Hydroxyzine Hcl 25 Mg Tab) 25 mg PO Q8H PRN PRN Reason: Anxiety Last Admin: 08/19/20 07:19 Dose: 25 mg Documented by: Sodium Chloride (Normal Saline) 1,000 mls @ 125 mls/hr IV ASDIRECTED [facility] Last Admin: 08/19/20 00:21 Dose: 125 mls/hr Documented by: Cefazolin Sodium/Dextrose 1 gm (/ Premix) 50 mls @ 100 mls/hr IV Q8H [facility] Stop: 08/19/20 10:29 Last Admin: 08/19/20 01:47 Dose: 100 mls/hr Documented by: Ketorolac Tromethamine (Ketorolac 30 Mg/Ml Sdv) 30 mg IVPUSH Q8H PRN PRN Reason: Breakthrough Pain Last Admin: 08/19/20 07:19 Dose: 30 mg Documented by: Magnesium Hydroxide (Magnesium Hydroxide 400 Mg/5 Ml Susp 30 Ml Cup) 30 ml PO Q6H PRN PRN Reason: Stool Softener Magnesium Oxide (Magnesium Oxide 400 Mg Tab) 800 mg PO DAILY [facility] Morphine Sulfate (Morphine 2 Mg/Ml Syringe) 1 mg IV Q1H PRN PRN Reason: Breakthrough Pain Last Admin: 08/18/20 22:52 Dose: 1 mg Documented by: Ondansetron HCl (Ondansetron 4 Mg/2 Ml Sdv) 4 mg IVPUSH Q4H PRN PRN Reason: Nausea/Vomiting Last Admin: 08/18/20 18:48 Dose: 4 mg Documented by: Oxycodone/Acetaminophen (Acetaminophen/Oxycodone 325-5 Mg Tab) 1 - 2 tab PO Q4H PRN PRN Reason: Pain Last Admin: 08/19/20 05:06 Dose: 2 tab Documented by: Pantoprazole Sodium (Pantoprazole 40 Mg Tab.Cr) 40 mg PO ACBREAKFAST [facility] Last Admin: 08/19/20 07:21 Dose: 40 mg Documented by: Polyethylene Glycol (Polyethylene Glycol 3350 Powder 17 Gm Packet) 17 gm PO DAILY [facility] Quetiapine Fumarate (Quetiapine 100 Mg Tab) 100 mg PO BEDTIME [facility] Last Admin: 08/18/20 20:46 Dose: 100 mg Documented by: Discontinued Medications Bandage/Support Products (Nozin Nasal Net Software Architect) 1 applic NASBOTH BID [facility] Last Admin: 08/18/20 09:13 Dose: 1 applic Documented by: Fentanyl (Fentanyl 100 Mcg/2 Ml Sdv) Confirm Administered Dose 100 mcg .ROUTE .STK-MED ONE Stop: 08/18/20 08:25 Fentanyl (Fentanyl 100 Mcg/2 Ml Sdv) Confirm Administered Dose 100 mcg .ROUTE .STK-MED ONE Stop: 08/18/20 13:07 Fentanyl (Fentanyl 100 Mcg/2 Ml Sdv) Confirm Administered Dose 100 mcg .ROUTE .STK-MED ONE Stop: 08/18/20 14:03 Cefazolin Sodium/Dextrose 2 gm (/ Premix) 50 mls @ 100 mls/hr IV ONETIME ONE Stop: 08/18/20 10:29 Last Admin: 08/18/20 11:29 Dose: 100 mls/hr Documented by: Lactated Ringer's (Ringers, Lactated) 1,000 mls @ 75 mls/hr IV ASDIRECTED [facility] Last Admin: 08/18/20 09:30 Dose: 75 mls/hr Documented by: Lactated Ringer's (Ringers, Lactated) 1,000 mls @ 500 mls/hr IV ASDIRECTED ONE Stop: 08/18/20 12:18 Last Admin: 08/18/20 15:40 Dose: Not Given Documented by: Lactated Ringer's (Ringers, Lactated) Confirm Administered Dose 1,000 mls @ as directed .ROUTE .STK-MED ONE Stop: 08/18/20 13:05 Midazolam HCl (Midazolam 1 Mg/Ml 2 Ml Sdv) Confirm Administered Dose 2 mg .ROUTE .STK-MED ONE Stop: 08/18/20 08:25 Morphine Sulfate (Morphine 2 Mg/Ml Syringe) 2 mg IVPUSH ONETIME ONE Stop: 08/18/20 14:51 Last Admin: 08/18/20 14:54 Dose: 2 mg Documented by: Povidone Iodine (Povidone-Iodine 10% Soln 118.25 Ml Bottle) Confirm Administered Dose 1 ml .ROUTE .STK-MED ONE Stop: 08/18/20 07:05 Last Admin: 08/18/20 12:09 Dose: 40 ml Documented by: Propofol (Propofol 200 Mg/20 Ml Sdv) Confirm Administered Dose 200 mg .ROUTE .STK-MED ONE Stop: 08/18/20 08:25 Propofol (Propofol 200 Mg/20 Ml Sdv) Confirm Administered Dose 200 mg .ROUTE .STK-MED ONE Stop: 08/18/20 11:56 Propofol (Propofol 200 Mg/20 Ml Sdv) Confirm Administered Dose 200 mg .ROUTE .STK-MED ONE Stop: 08/18/20 13:08 Propofol (Propofol 200 Mg/20 Ml Sdv) Confirm Administered Dose 200 mg .ROUTE .STK-MED ONE Stop: 08/18/20 13:40 - Exam Wound/Incisions: Dressing Dry and Intact Quality Assessment: Urine Catheter, DVT Prophylaxis General: Alert, Oriented, Cooperative Extremities: No Pedal Edema, Normal Capillary Refill, Leg Pain, Limited Range of Motion Skin: Dry, Intact Neurological: No New Focal Deficit Psy/Mental Status: Alert, Normal Affect, Anxious Sepsis Event Note - Evaluation Sepsis Screening Result: No Definite Risk - Focused Exam Vital Signs: Vital Signs Temp Pulse Resp BP Pulse Ox 08/19/20 06:50 99.4 F 83 18 122/57 L 98 08/19/20 03:00 99.4 F 95 16 114/59 L 96 08/18/20 22:56 99.1 F 83 16 103/57 L 95 - Problem List & Annotations (1) S/P revision of total hip SNOMED Code(s): 293567000, 306268519, 417145212, 422882609 Code(s): Z96.649 - PRESENCE OF UNSPECIFIED ARTIFICIAL HIP JOINT Status: Acute Current Visit: Yes Annotation/Comment:: left hip femoral component revision (2) Postoperative anemia SNOMED Code(s): 316350182, 344661739 Code(s): D64.9 - ANEMIA, UNSPECIFIED Status: Acute Current Visit: Yes - Problem List Review Problem List Initiated/Reviewed/Updated: Yes - My Orders Last 24 Hours: Active Orders 24 hr Category Date Time Status Patient Status [ADT] Routine ADT 08/18/20 14:36 Active Ambulate [RC] PER UNIT ROUTINE Care 08/18/20 14:36 Active Antiembolic Devices [RC] .Routine Care 08/18/20 14:37 Active Head of Bed Elevation [RC] ASDIRECTED Care 08/18/20 14:36 Active Neurovascular Check [RC] BID Care 08/18/20 14:36 Active Notify Provider Intake and Out [RC] ASDIRECTED Care 08/18/20 14:36 Active Notify Provider Vital Signs [RC] ASDIRECTED Care 08/18/20 14:36 Active Oxygen Therapy [RC] PRN Care 08/18/20 14:36 Active Pulse Oximetry [RC] INTERMITTENT Care 08/18/20 14:36 Active RT Incentive Spirometry [RC] Q1HWA Care 08/18/20 14:36 Active Up to Chair [RC] QID Care 08/18/20 14:36 Active VTE/DVT Education [RC] Click to Edit Care 08/18/20 14:37 Active Vital Signs [RC] PER UNIT ROUTINE Care 08/18/20 14:36 Active Wound Care [RC] Q12H Care 08/18/20 14:36 Active Consult to Case Management/[employer] Crewmember [CONS] Cons 08/18/20 14:36 Active Routine OT Evaluation and Treatment [CONS] Routine Cons 08/18/20 14:41 Active PT Evaluation and Treatment [CONS] Routine Cons 08/18/20 14:36 Active PT Evaluation and Treatment [CONS] Routine Cons 08/18/20 14:36 Active Regular Diet [DIET] Diet 08/18/20 Dinner Active Acetaminophen [TylenoL] Med 08/18/20 14:36 Active 650 mg PO Q4H PRN Acetaminophen/HYDROcodone [[place] 325-5 MG] Med 08/18/20 14:36 Active 1 tab PO Q4H PRN Acetaminophen/oxyCODONE [Percocet 325-5 MG] Med 08/18/20 14:44 Active 1 - 2 tab PO Q4H PRN Docusate Sodium [Colace] Med 08/19/20 09:00 Active 100 mg PO DAILY Enoxaparin [Lovenox] Med 08/19/20 09:00 Active 30 mg SUBCUT DAILY Furosemide [Lasix] Med 08/19/20 09:00 Active 20 mg PO DAILY Ketorolac [Toradol] Med 08/18/20 14:47 Active 30 mg IVPUSH Q8H PRN Magnesium Hydroxide [Milk of Magnesia] Med 08/18/20 14:36 Active 30 ml PO Q6H PRN Magnesium Oxide Med 08/19/20 09:00 Active 800 mg PO DAILY Morphine Med 08/18/20 14:36 Active 1 mg IV Q1H PRN Nozin [ Nasal Net Software Architect] Med 08/18/20 21:00 Active 1 applic NASBOTH BID Ondansetron [Zofran] Med 08/18/20 14:36 Active 4 mg IVPUSH Q4H PRN Pantoprazole [ProTONIX] Med 08/19/20 07:30 Active 40 mg PO ACBREAKFAST QUEtiapine [SEROqueL] Med 08/18/20 21:00 Active 100 mg PO BEDTIME Sodium Chloride 0.9% [Normal Saline] 1,000 ml Med 08/18/20 14:45 Active IV ASDIRECTED bisacodyL [Dulcolax] Med 08/18/20 14:36 Active 10 mg RECTAL DAILY PRN ceFAZolin [Ancef 1 GM/50 ML] 1 gm Med 08/18/20 18:00 Active Premix Bag 1 bag IV Q8H hydrOXYzine HCL [Atarax] Med 08/18/20 14:53 Active 25 mg PO Q8H PRN polyethylene glycoL 3350 [MiraLAX] Med 08/19/20 09:00 Active 17 gm PO DAILY Antiembolic Hose [OM.PC] Per Unit Routine Oth 08/18/20 14:36 Ordered DME for Inpatients [OM.PC] Routine Oth 08/18/20 14:36 Ordered DVT/VTE Prophylaxis Reflex [OM.PC] Routine Oth 08/18/20 14:36 Ordered Ice Therapy [OM.PC] Per Unit Routine Oth 08/18/20 14:36 Ordered Oral Care [OM.PC] Routine Oth 08/18/20 14:36 Ordered Sequential Compression Device [OM.PC] Routine Oth 08/18/20 14:36 Ordered ALDA Hose [Antiembolic Hose] [OM.PC] Routine Oth 08/18/20 09:00 Ordered Weight bearing status [OM.PC] Routine Oth 08/18/20 14:36 Ordered Resuscitation Status Routine Resus Stat 08/18/20 14:36 Ordered Medication Orders Acetaminophen (Acetaminophen 325 Mg Tab) 650 mg PO Q4H PRN PRN Reason: Pain/Fever Hydrocodone Bitart/Acetaminophen (Acetaminophen/Hydrocodone 325-5 Mg Tab) 1 tab PO Q4H PRN PRN Reason: Pain (mild 1-3) Bandage/Support Products (Nozin Nasal Net Software Architect) 1 applic NASBOTH BID [facility] Stop: 08/25/20 21:01 Last Admin: 08/18/20 20:45 Dose: 1 applic Documented by: AL Bisacodyl (Bisacodyl 10 Mg Supp) 10 mg RECTAL DAILY PRN PRN Reason: Constipation Docusate Sodium (Docusate Sodium 100 Mg Cap) 100 mg PO DAILY [facility] Enoxaparin Sodium (Enoxaparin 30 Mg/0.3 Ml Syringe) 30 mg SUBCUT DAILY [facility] Furosemide (Furosemide 20 Mg Tab) 20 mg PO DAILY [facility] Hydroxyzine HCl (Hydroxyzine Hcl 25 Mg Tab) 25 mg PO Q8H PRN PRN Reason: Anxiety Last Admin: 08/19/20 07:19 Dose: 25 mg Documented by: Admin: 08/18/20 18:08 Dose: 25 mg Documented by: PATRICIA Cosigned by: KYE Sodium Chloride (Normal Saline) 1,000 mls @ 125 mls/hr IV ASDIRECTED [facility] Last Admin: 08/19/20 00:21 Dose: 125 mls/hr Documented by: Infusion: 08/19/20 00:21 Dose: 125 mls/hr Documented by: Admin: 08/18/20 18:05 Dose: 125 mls/hr Documented by: PATRICIA Cosigned by: KYE Cefazolin Sodium/Dextrose 1 gm (/ Premix) 50 mls @ 100 mls/hr IV Q8H [facility] Stop: 08/19/20 10:29 Last Admin: 08/19/20 01:47 Dose: 100 mls/hr Documented by: Infusion: 08/18/20 18:22 Dose: 100 mls/hr Documented by: Admin: 08/18/20 17:52 Dose: 100 mls/hr Documented by: PATRICIA Laurentigned by: KYE Ketorolac Tromethamine (Ketorolac 30 Mg/Ml Sdv) 30 mg IVPUSH Q8H PRN PRN Reason: Breakthrough Pain Last Admin: 08/19/20 07:19 Dose: 30 mg Documented by: Admin: 08/18/20 17:42 Dose: 30 mg Documented by: RAMONA Magnesium Hydroxide (Magnesium Hydroxide 400 Mg/5 Ml Susp 30 Ml Cup) 30 ml PO Q6H PRN PRN Reason: Stool Softener Magnesium Oxide (Magnesium Oxide 400 Mg Tab) 800 mg PO DAILY [facility] Morphine Sulfate (Morphine 2 Mg/Ml Syringe) 1 mg IV Q1H PRN PRN Reason: Breakthrough Pain Last Admin: 08/18/20 22:52 Dose: 1 mg Documented by: Admin: 08/18/20 20:41 Dose: 1 mg Documented by: Admin: 08/18/20 19:33 Dose: 1 mg Documented by: Admin: 08/18/20 18:17 Dose: 1 mg Documented by: PATRICIA Laurentigned by: KYE Ondansetron HCl (Ondansetron 4 Mg/2 Ml Sdv) 4 mg IVPUSH Q4H PRN PRN Reason: Nausea/Vomiting Last Admin: 08/18/20 18:48 Dose: 4 mg Documented by: RAMONA Oxycodone/Acetaminophen (Acetaminophen/Oxycodone 325-5 Mg Tab) 1 - 2 tab PO Q4H PRN PRN Reason: Pain Last Admin: 08/19/20 05:06 Dose: 2 tab Documented by: Admin: 08/19/20 00:20 Dose: 2 tab Documented by: Admin: 08/18/20 19:27 Dose: 2 tab Documented by: Admin: 08/18/20 15:37 Dose: 2 tab Documented by: KYE Pantoprazole Sodium (Pantoprazole 40 Mg Tab.Cr) 40 mg PO ACBREAKFAST [facility] Last Admin: 08/19/20 07:21 Dose: 40 mg Documented by: KYE Polyethylene Glycol (Polyethylene Glycol 3350 Powder 17 Gm Packet) 17 gm PO DAILY [facility] Quetiapine Fumarate (Quetiapine 100 Mg Tab) 100 mg PO BEDTIME [facility] Last Admin: 08/18/20 20:46 Dose: 100 mg Documented by: SAMULIN - Assessment Assessment (Free Text/Narrative):: Patient is a pleasant 60 y/o female, s/p left hip femoral component revision, POD#1. Patient tolerated surgery well with no major complications. Patient underwent left total hip arthroplasty on 07/17/20 and had a limb length discrepancy; underwent femoral component revision to correct length discrepancy. Patient has struggled with pain control post-operatively. Pain medication PRNs have been utilized (see MAR for details). Reports pain radiates from deep in left hip into thigh. Denied numbness or tingling of L LE. Due to pain, patient was unable to get out of bed nor ambulate yesterday following surgery. Did transfer into chair this morning, reports significant pain in L LE during this maneuver. [place] leg length was improved while standing this morning, but still feels left may be a bit longer. Discussed how pain and sheet rock layer ambulation may have affected gait and perceived leg length this morning; patient to participate in physical therapy later this morning and may further discuss leg length with Dr. Okeefe this afternoon. Endorsed some anxiety due to pain and concerns of length. Patient reports some nausea last night; prn Zofran was utilized. Was able to eat apple sauce and jello since, kept that down. Post-operative anemia: HgB at 9.4 this morning. Patient has been hemodynamically stable; denied orthostatic hypotension, dizziness, nor lightheadedness. Patient status changed from same day surgery to inpatient, as patient is requiring additional therapy services at this time to aid in ambulation with FWW and stairs to be safe for discharge to home. Additionally requiring better pain control with PO medications prior to discharge. Exam: L hip dressing dry and intact. No surrounding erythema nor ecchymosis. Mild warmth to touch. No significant L pedal edema. L distal LE neurovascular intact. Plan: * Continue with physical and occupational therapy services daily while in the hospital * Continue with current pain management regimen; will need to transition to PO medications for discharge * Post-operative anemia stable at this time. Continue to monitor for symptoms of orthostatic hypotension or dizziness; will re-check CBC if patient becomes symptomatic * Left hip dressing change to be performed by orthopedic provider on POD#2 * Forte may be discontinued as ambulatory status advances
[2020-08-19] MEDS: Enoxaparin 30 MG/0.3 ML Syringe SUBCUT SCH (08:24)
[2020-08-19] MEDS: Magnesium Oxide 400 MG Tab PO SCH (08:27)
[2020-08-19] MEDS: Docusate Sodium 100 MG Cap PO SCH (08:27)
[2020-08-19] MEDS: Furosemide 20 MG Tab PO SCH (08:27)
[2020-08-19] MEDS: Nozin Nasal Sanitizer NASBOTH SCH ×2 (08:28→20:49)
[2020-08-19] MEDS: Polyethylene Glycol 3350 Powder 17 GM Packet PO SCH (08:28)
[2020-08-19] MEDS: Morphine 2 MG/ML SYRINGE IV PRN (12:23)
[2020-08-19] MEDS: QUEtiapine 100 MG Tab PO SCH (20:49)
[2020-08-20] MEDS: Acetaminophen/oxyCODONE 325-5 MG Tab PO PRN ×4 (01:04→15:23)
[2020-08-20] MEDS: Ketorolac 30 MG/ML SDV IVPUSH PRN ×2 (05:13→14:33)
[2020-08-20] MEDS: Pantoprazole 40 MG Tab.CR PO SCH (07:28)
[2020-08-20] MEDS: Nozin Nasal Sanitizer NASBOTH SCH (09:09)
[2020-08-20] MEDS: Enoxaparin 30 MG/0.3 ML Syringe SUBCUT SCH (09:09)
[2020-08-20] MEDS: Magnesium Oxide 400 MG Tab PO SCH (09:09)
[2020-08-20] MEDS: Furosemide 20 MG Tab PO SCH (09:09)
[2020-08-20] MEDS: Docusate Sodium 100 MG Cap PO SCH (09:10)
[2020-08-20] MEDS: Polyethylene Glycol 3350 Powder 17 GM Packet PO SCH (09:10)
[2020-08-20] MEDS: hydrOXYzine HCl 25 MG Tab PO PRN (10:25)
--- NOTE | 2020-08-20 13:53 | PCM.DCSUM1 ---
Discharge Summary - Hospital Course Brief History: Pleasant 60 y/o female, underwent a left total hip arthroplasty 07/17/20 and experienced 1.9 cm leg length discrepancy. Elected to undergo a left hip femoral component revision to correct. Surgery went well with no complications. Hospital course prolonged for pain control and additional therapy services to be safe for discharge to home. Diagnosis: Stroke: No Modified Nalini Scale: No Symptoms at All Modified Avery Scale Score: 0 - Discharge Data Discharge Date: 08/20/20 Discharge Disposition: Home, Self-Care 01 Condition: Good - Referral to Home Health Date of Face to Face Encounter: 08/20/20 Reason for Homebound Status: motivated to go home, able to ambulate with FWW and perform ADLs with minimal assistance Primary Care Physician: Michelle Sepulveda MD - Discharge Diagnosis/Problem(s) (1) S/P revision of total hip SNOMED Code(s): 835866710, [id number], [id number], [id number] ICD Code: Z96.649 - PRESENCE OF UNSPECIFIED ARTIFICIAL HIP JOINT Status: Acute Current Visit: Yes Problem Details: left hip femoral component revision (2) Postoperative anemia SNOMED Code(s): 710473445, 941120690 ICD Code: D64.9 - ANEMIA, UNSPECIFIED Status: Acute Current Visit: Yes - Patient Summary/Data Operative Procedure(s) Performed: left hip revision, femoral compartment replacement Consults: Consultations 08/18/20 14:36 Consult to Case Management/Plaster Machine Tender [CONS] Routine Comment: Physician Instructions: Discharge placement post hip surgery Service(s) to be Consulted: Case Management PT Evaluation and Treatment [CONS] Routine Please Evaluate and Treat. PT Reason for Consult: Ambulation Discharge Disposition: Home w Home Health Special Instructions: posterior hip precautions, WBAT s/p L femoral head component revision This query below is only for informational purposes and is not editable. PT Evaluation and Treatment [CONS] Routine Please Evaluate and Treat. PT Reason for Consult: Post op Ortho Surgery Hip Pending Discharge: Yes, 2- -3 days Special Instructions: s/p L femoral head component revision Schedule first outpatient P.T. appointment 3 - 5 days post discharge This query below is only for informational purposes and is not editable. 08/18/20 14:41 OT Evaluation and Treatment [CONS] Routine Please Evaluate and Treat. OT Reason for Consult: ADL's Special Instructions: Status post Hip Surgery This query below is only for informational purposes and is not editable. Hospital Course: Patient is a pleasant 60 y/o female, s/p left hip revision with femoral component replacement, POD #2. Patient underwent a left total hip arthroplasty on 07/17/20 and experienced a leg length discrepancy of 1.9 cm and elected to have corrective surgery. Revision surgery went well with no complications. Post-operatively, patient initially struggled with pain control. PRNs were utilized. By POD#2, pain was well controlled with PO medications. Denied numbness or tingling in left lower extremity. Patient was compliant with physical therapy daily while in the hospital. Posterior hip precautions were reviewed with patient. Patient ambulated on POD#1 and #2 with FWW up to 100 feet. Demonstrated ability to safely transfer into and out of bed with leg high school science teacher or minimal assist guiding leg. Does have support at home able to help guide legs as needed. Able to complete ADLs with minimal assistance. With ambulation and transfers, patient reports that her legs feel much more even than prior to surgery. Patient had nausea the evening of surgery, but none since. Has tolerated regular diet without nausea or emesis. Forte catheter was removed on POD#1. IV Saline locked POD#1. Dressing change performed on POD#2. Hospital stay was prolonged due to needing additional therapy services to be safe for discharge to home and better pain control with PO medications. Exam: Left distal lower extremity neurovascular intact. Left hip incision intact, no surrounding erythema, active drainage, nor ecchymosis. New left hip dressing dry and intact. No significant pedal edema. Some swelling in left thigh compared to right thigh. Negative Kaylyn's on L LE. - Patient Instructions Diet: Usual Diet as Tolerated Activity: Apply Ice, Full Weight Bearing, No Strenuous Activities Driving: Do Not Drive Showering/Bathing: Shower in AM Wound/Incision Care: Keep Operative Site/Wound Site Clean and Dry, Change Dressing Daily Notify Provider of: Fever, Increased Pain, Swelling and Redness, Drainage, Nausea and/or Vomiting Other/Special Instructions: Take 1 Aspirin BID for DVT/VTE prophylaxis. Continue Nozin Nasal Fenton - Discharge Plan *PRESCRIPTION DRUG MONITORING PROGRAM REVIEWED*: Not Applicable *COPY OF PRESCRIPTION DRUG MONITORING REPORT IN PATIENT MOY: Not Applicable Home Medications: Home Meds Celecoxib [CeleBREX] 200 mg PO DAILY 11/03/18 [History] Furosemide [Lasix] 20 mg PO DAILY 11/03/18 [History] Omeprazole 20 mg PO DAILY 11/03/18 [History] hydrOXYzine pamoate [Vistaril] 25 mg PO Q8H PRN 11/03/18 [History] Calcium Citrate/Vitamin D3 [Calcium Citrate - Vit D Caplet] 2 each PO DAILY 06/16/20 [History] Cyanocobalamin (Vitamin B12) [Vitamin B12] 1,000 mg SL DAILY 06/16/20 [History] Ferrous Fumarate/Vitamin C [Vitron-C] 1 tab PO DAILY 06/16/20 [History] Magnesium Oxide [Magnesium] 800 mg PO DAILY 06/16/20 [History] Multivitamin [Multiple Vitamins] 2 tab PO DAILY 06/16/20 [History] QUEtiapine [SEROquel] 100 mg PO BEDTIME 06/16/20 [History] polyethylene glycoL 3350 [MiraLAX] 17 gm PO DAILY 06/16/20 [History] Acetaminophen [Tylenol] 650 mg PO Q6H PRN 06/17/20 [History] traMADol [Ultram] 50 mg PO Q6H PRN #28 tab 08/06/20 [Rx] Aspirin 325 mg PO BID 08/20/20 [History] Oxygen Therapy Mode: Room Air Patient Handouts: Preventing Problems After Surgery, Preventing Constipation After Surgery Referrals: Terrance Okeefe MD [Physician] - 08/21/20 3:30 pm (Please arrive 15 minutes early to register for your appointment.) - Discharge Summary/Plan Comment DC Time >30 min.: No Discharge Summary/Plan Comment: * Anticipate discharge to home today * Order provided for outpatient physical therapy with [facility]; paper copy of order given to RN, also faxed order to [facility] in [place] * Paper script for 1 week supply of pain medication given to patient * Education provided for patient to take 1 aspirin BID for DVT/VTE prophylaxis * Education provided for patient to continue with Nozin Nasal Fenton * L hip dressing change performed by orthopedic provider prior to discharge * Patient to follow up with ortho clinic on 08/28/20 @[id number]. Encouraged to call if questions or concerns arise prior to scheduled apt * Patient agreeable to and expressed understanding of the above plan - General Info Date of Service: 08/20/20 Functional Status: Reports: Pain Controlled, Tolerating Diet, Ambulating (with FWW ), Urinating - Review of Systems General: Reports: No Symptoms HEENT: Reports: No Symptoms Pulmonary: Reports: No Symptoms Cardiovascular: Reports: No Symptoms Gastrointestinal: Reports: No Symptoms Genitourinary: Reports: No Symptoms Musculoskeletal: Reports: Leg Pain (left ), Joint Pain (left hip ) Skin: Reports: No Symptoms Neurological: Reports: No Symptoms Psychiatric: Reports: No Symptoms - Patient Data Vitals - Most Recent: Last Vital Signs Temp 98.8 F 08/20/20 10:41 Pulse 103 H 08/20/20 10:41 Resp 16 08/20/20 10:41 BP 110/53 L 08/20/20 10:41 Pulse Ox 99 08/20/20 10:41 Weight - Most Recent: 148 lb 1.599 oz I&O - Last 24 hours: Intake & Output 08/19/20 08/20/20 08/20/20 22:59 06:59 14:59 Intake Total 590 1190 Output Total 1100 1450 Balance -510 -260 Med Orders - Current: Current Medications Acetaminophen (Acetaminophen 325 Mg Tab) 650 mg PO Q4H PRN PRN Reason: Pain/Fever Hydrocodone Bitart/Acetaminophen (Acetaminophen/Hydrocodone 325-5 Mg Tab) 1 tab PO Q4H PRN PRN Reason: Pain (mild 1-3) Bandage/Support Products (Nozin Nasal Pin Drafting Machine Operator) 1 applic NASBOTH BID [facility] Stop: 08/25/20 21:01 Last Admin: 08/20/20 09:09 Dose: 1 applic Documented by: Bisacodyl (Bisacodyl 10 Mg Supp) 10 mg RECTAL DAILY PRN PRN Reason: Constipation Docusate Sodium (Docusate Sodium 100 Mg Cap) 100 mg PO DAILY [facility] Last Admin: 08/20/20 09:10 Dose: 100 mg Documented by: Enoxaparin Sodium (Enoxaparin 30 Mg/0.3 Ml Syringe) 30 mg SUBCUT DAILY [facility] Last Admin: 08/20/20 09:09 Dose: 30 mg Documented by: Furosemide (Furosemide 20 Mg Tab) 20 mg PO DAILY [facility] Last Admin: 08/20/20 09:09 Dose: 20 mg Documented by: Hydroxyzine HCl (Hydroxyzine Hcl 25 Mg Tab) 25 mg PO Q8H PRN PRN Reason: Anxiety Last Admin: 08/20/20 10:25 Dose: 25 mg Documented by: Sodium Chloride (Normal Saline) 1,000 mls @ 125 mls/hr IV ASDIRECTED [facility] Last Admin: 08/19/20 00:21 Dose: 125 mls/hr Documented by: Ketorolac Tromethamine (Ketorolac 30 Mg/Ml Sdv) 30 mg IVPUSH Q8H PRN PRN Reason: Breakthrough Pain Stop: 08/23/20 14:48 Last Admin: 08/20/20 05:13 Dose: 30 mg Documented by: Magnesium Hydroxide (Magnesium Hydroxide 400 Mg/5 Ml Susp 30 Ml Cup) 30 ml PO Q6H PRN PRN Reason: Stool Softener Magnesium Oxide (Magnesium Oxide 400 Mg Tab) 800 mg PO DAILY [facility] Last Admin: 08/20/20 09:09 Dose: 800 mg Documented by: Morphine Sulfate (Morphine 2 Mg/Ml Syringe) 1 mg IV Q1H PRN PRN Reason: Breakthrough Pain Last Admin: 08/19/20 12:23 Dose: 1 mg Documented by: Ondansetron HCl (Ondansetron 4 Mg/2 Ml Sdv) 4 mg IVPUSH Q4H PRN PRN Reason: Nausea/Vomiting Last Admin: 08/18/20 18:48 Dose: 4 mg Documented by: Oxycodone/Acetaminophen (Acetaminophen/Oxycodone 325-5 Mg Tab) 1 - 2 tab PO Q4H PRN PRN Reason: Pain Last Admin: 08/20/20 11:26 Dose: 2 tab Documented by: Pantoprazole Sodium (Pantoprazole 40 Mg Tab.Cr) 40 mg PO ACBREAKFAST [facility] Last Admin: 08/20/20 07:28 Dose: 40 mg Documented by: Polyethylene Glycol (Polyethylene Glycol 3350 Powder 17 Gm Packet) 17 gm PO DAILY [facility] Last Admin: 08/20/20 09:10 Dose: 17 gm Documented by: Quetiapine Fumarate (Quetiapine 100 Mg Tab) 100 mg PO BEDTIME [facility] Last Admin: 08/19/20 20:49 Dose: 100 mg Documented by: Discontinued Medications Bandage/Support Products (Nozin Nasal Pin Drafting Machine Operator) 1 applic NASBOTH BID [facility] Last Admin: 08/18/20 09:13 Dose: 1 applic Documented by: Fentanyl (Fentanyl 100 Mcg/2 Ml Sdv) Confirm Administered Dose 100 mcg .ROUTE .STK-MED ONE Stop: 08/18/20 08:25 Fentanyl (Fentanyl 100 Mcg/2 Ml Sdv) Confirm Administered Dose 100 mcg .ROUTE .STK-MED ONE Stop: 08/18/20 13:07 Fentanyl (Fentanyl 100 Mcg/2 Ml Sdv) Confirm Administered Dose 100 mcg .ROUTE .S TK-MED ONE Stop: 08/18/20 14:03 Cefazolin Sodium/Dextrose 2 gm (/ Premix) 50 mls @ 100 mls/hr IV ONETIME ONE Stop: 08/18/20 10:29 Last Admin: 08/18/20 11:29 Dose: 100 mls/hr Documented by: Lactated Ringer's (Ringers, Lactated) 1,000 mls @ 75 mls/hr IV ASDIRECTED [facility] Last Admin: 08/18/20 09:30 Dose: 75 mls/hr Documented by: Lactated Ringer's (Ringers, Lactated) 1,000 mls @ 500 mls/hr IV ASDIRECTED ONE Stop: 08/18/20 12:18 Last Admin: 08/18/20 15:40 Dose: Not Given Documented by: Lactated Ringer's (Ringers, Lactated) Confirm Administered Dose 1,000 mls @ as directed .ROUTE .STK-MED ONE Stop: 08/18/20 13:05 Cefazolin Sodium/Dextrose 1 gm (/ Premix) 50 mls @ 100 mls/hr IV Q8H [facility] Stop: 08/19/20 10:29 Last Admin: 08/19/20 09:05 Dose: 100 mls/hr Documented by: Midazolam HCl (Midazolam 1 Mg/Ml 2 Ml Sdv) Confirm Administered Dose 2 mg .ROUTE .STK-MED ONE Stop: 08/18/20 08:25 Morphine Sulfate (Morphine 2 Mg/Ml Syringe) 2 mg IVPUSH ONETIME ONE Stop: 08/18/20 14:51 Last Admin: 08/18/20 14:54 Dose: 2 mg Documented by: Povidone Iodine (Povidone-Iodine 10% Soln 118.25 Ml Bottle) Confirm Administered Dose 1 ml .ROUTE .STK-MED ONE Stop: 08/18/20 07:05 Last Admin: 08/18/20 12:09 Dose: 40 ml Documented by: Propofol (Propofol 200 Mg/20 Ml Sdv) Confirm Administered Dose 200 mg .ROUTE .STK-MED ONE Stop: 08/18/20 08:25 Propofol (Propofol 200 Mg/20 Ml Sdv) Confirm Administered Dose 200 mg .ROUTE .STK-MED ONE Stop: 08/18/20 11:56 Propofol (Propofol 200 Mg/20 Ml Sdv) Confirm Administered Dose 200 mg .ROUTE .STK-MED ONE Stop: 08/18/20 13:08 Propofol (Propofol 200 Mg/20 Ml Sdv) Confirm Administered Dose 200 mg .ROUTE .STK-MED ONE Stop: 08/18/20 13:40 - Exam General: Reports: Alert, Oriented, Cooperative, No Acute Distress Extremities: Normal Capillary Refill, Leg Pain (left ), Limited Range of Motion Skin: Reports: Dry, Intact Wound/Incisions: Reports: Dressing Dry and Intact, No Drainage Neurological: Reports: No New Focal Deficit Psy/Mental Status: Reports: Alert, Normal Affect, Normal Mood
--- NOTE | 2020-09-04 07:30 | OR ---
DATE OF PROCEDURE: 08/18/2020 SURGEON: Terrance Okeefe MD PREOPERATIVE DIAGNOSIS: Limb length discrepancy. POSTOPERATIVE DIAGNOSIS: Limb length discrepancy. PROCEDURE: Revision, left total hip femoral component, and exchange of acetabular polyethylene. ENERGY EFFICIENCY FINANCE MANAGER: DEMETRIUS Kay ANESTHESIA: Spinal with sedation. INDICATIONS: Supriya is a very pleasant 60-year-old female who underwent a left total hip arthroplasty in June of this year. Unfortunately, this resulted in significant limb length discrepancy of almost 2 cm. She has been unable to compensate for this with shoe lift. She therefore presents for revision of the left hip to correct limb lengths. Risks, benefits and potential complications of the procedure were discussed at some length. assistant director of public works duties of Physician's Manager Small Business were utilized due to the complexity of the case, need for retraction, exposure and manipulation of the joint and leg for trialing and reduction. DESCRIPTION OF PROCEDURE: After adequate anesthesia was obtained, the patient was placed in the lateral decubitus position and secured with the hip positioner. The left hip and leg were then prepped and draped in a sterile fashion. The position of the leg and lengths were noted prior to incision. The previous incision was utilized, carried down to the subcutaneous tissues and hemostasis obtained with electrocautery. Tensor fascia and ITB band were split in line with the fibers. The posterior capsule was divided. There was no evidence of infection or loosening. A bolster was placed between the knees, so that the legs were parallel and position could be reproduced. A Steinmann pin was then placed into the acetabulum above the acetabular cup perpendicular to the femur. A second Steinmann pin was placed in the tip of the trochanter parallel to the first pin and the distance between these was measured and noted. Trochanteric pin was removed and acetabular pin was left in place. The capsule was further divided allowing dislocation of the hip. The femoral head was removed. Using combination of small curved osteotome and flexible osteotomes, the lateral shoulder of the femoral implant was exposed. Osteotomes were then used to loosen the proximal metaphysis. An extended trochanteric osteotomy was then planned. This was divided along the linea aspera with a microsagittal saw for a distance of approximately 9 mm to exit just slightly distal to the ingrowth portion of the stem. A drill hole was placed at the inferior aspect for stress relief and a second drill hole was placed anterior. These were then connected with an osteotome at an angle bevelling the inferior aspect of the osteotomy. Small osteotomes were then placed beneath the osteotomy along the stem and used to lever the osteotomy anteriorly. This fully exposed the ingrowth portion of the stem which was well fixed. Osteotomes were then used to loosen the visible portions anteriorly and posteriorly. A Gigli saw was then placed medially along the calcar and used to loosen the medial portion of the stem working from proximal to distal. Once this was accomplished, the stem was removed without difficulty. The canal was then sequentially reamed initially to 15 mm. Size 15 x 190 Steinberg trial stem was then placed. It had a very snug fit and could not be advanced enough to make up for the limb length discrepancy. Decision was made to downsize this to a size 14 x 190. Trial was placed. Two cable warehouse operations associate were placed around the osteotomy site and temporarily tensioned. This allowed trial reduction with a -3.5 neck length, 32 mm head. This did appear to re-create limb length, but showed a tendency for posterior dislocation. Decision was made to proceed with replacement of the acetabular liner with an elevated liner. The hip was dislocated, femoral head was removed and the stem was removed for easier access to the acetabulum. The edge of the liner was exposed circumferentially. Small drill hole was made in the edge and a 6.5 mm screw was then placed into the drill hole and used to remove the liner without difficulty. Cup was very well fixed. It was irrigated and an elevated liner rim was placed positioning the elevated portion slightly more posterior than superior and tapped into position. Trial reduction was then done once again which showed much improved stability. With the trial in place, the Steinmann pin was repositioned and this measurement was done which showed approximately 2 cm difference and mosque of limb length. This was also confirmed with positioning of the leg at the knee and foot. The position of the trial stem was noted, hip was dislocated and the trial was removed. The final stem was then tapped into position just slightly more anteversion than anatomic and taken down to the level previously noted. The trial head was again placed, measurements were repeated and again this appeared to show mosque of normal leg length. The trial was removed. The final 32 mm ceramic head was placed on the taper and the hip was reduced. The trochanteric osteotomy was secured with 3 cable warehouse operations associate and these were tensioned, crimped and cut. Once this was done, measurements were repeated and again limb length appeared to be very well restored. The hip was stable at 90 degrees of flexion, approximately 20 degrees of adduction and internal rotation easily to 30 degrees. The acetabular Steinmann pin was removed. The hip was irrigated including dilute Betadine irrigation which was left in place for 2-1/2 minutes. This was followed by final irrigation. The tensor fascia was closed in a running locking fashion with #2 Ethibond. Skin was closed with 2-0 Vicryl and a running 3-0 Monocryl. The patient tolerated the procedure very well. There were no complications. She was taken from the operating room in stable condition. Terrance Okeefe MD /[id number]
== END 2020-08-20 15:25 | disposition home or self-care (01) | DRG 301 ==
LOC: JP.SDS 08:26 → JP.MS 14:36 → JP.SDS 08-19 08:21 → JP.MS 08-19 08:21
PROVIDERS: ADMIT Physician Assistant Medical; ATTEND Physician Assistant Medical
PROC: 0SRS039 Replacement of Left Hip Joint, Femoral Surface with Ceramic Synthetic Substitute, Cemented, Open Approach (ICD-10-PCS; principal; 2020-08-18)
PROC: 0SPS0JZ Removal of Synthetic Substitute from Left Hip Joint, Femoral Surface, Open Approach (ICD-10-PCS; 2020-08-18)
PROC: 0SPB09Z Removal of Liner from Left Hip Joint, Open Approach (ICD-10-PCS; 2020-08-18)
PROC: 0SUE09Z Supplement Left Hip Joint, Acetabular Surface with Liner, Open Approach (ICD-10-PCS; 2020-08-18)
DX: M21.70 Unequal limb length (acquired), unspecified site (principal); D64.9 Anemia, unspecified; I10 Essential (primary) hypertension; G47.30 Sleep apnea, unspecified; K21.9 Gastro-esophageal reflux disease without esophagitis; F41.9 Anxiety disorder, unspecified; K59.09 Other constipation; M54.9 Dorsalgia, unspecified; Z85.3 Personal history of malignant neoplasm of breast
CPT/HCPCS: 36415; 72170; 72170-26; 80053; 85027; 86850; 86900; 86901; 97110-GP; 97116-GP; 97161-GP; 97165-GO; 97530-GP; 97535-GO; 97535-GP; A9270-GY; C1713; C1776; J0690; J1650; J1885; J2250; J2270; J2405; J2704; J3010; J7030; J7120